=== PATIENT | male | born 1980 | race Caucasian/White ===

== ENCOUNTER 2021-03-01 08:49 | Emergency (ER) | payer OTHER ==
[~2021-03-01] VITALS: Ht 190.5 cm; Wt 109.1 kg
--- NOTE | 2021-03-01 10:55 | NUR ---
MICHAEL EDUCATED AND VERBALIZED HOW TO TAKE NORCO AND VERBALIZED THAT HE CAN NOT DRINK ETOH, DRIVE OR MAKE IMPORTANT DECISIONS WHILE TAKING NORCO. PATIENT VERBALIZED SIDE EFFECTS OF NORCO
--- NOTE | 2021-03-01 10:55 | NUR ---
PATIENT DROVE HIMSELF HERE TODAY
[2021-03-01] MEDS ORDERED: IBUP-1986 PO (11:01)
[2021-03-01] MEDS ORDERED: HYDR-3965 PO (11:01)
[2021-03-01] MEDS ORDERED: ACET-2615 PO (11:01)
[2021-03-01 11:34] VITALS: BP 122/87
== END 2021-03-01 11:30 | disposition home or self-care (01) ==
LOC: ER 08:51
DX: M54.89 Other dorsalgia (principal); Z79.899 Other long term (current) drug therapy
CPT/HCPCS: 99283